=== PATIENT | male | born 1975 | race African-American/Black ===

== ENCOUNTER 2020-05-06 11:29 | Emergency (ER) | payer SELFPAY ==
[2020-05-06 12:57] LABS: BASOPHILS % (AUTO) 0.4 % (0.0-5.0); EOSINOPHILS % (AUTO) 0.7 % (0.0-8.0); HEMATOCRIT 45.3 % (42-54); LYMPHOCYTES % (AUTO) 22.6 % (21.0-51.0); MEAN CORPUSCULAR HGB CONC 33.6 g/dL (32.0-36.0); MEAN CORPUSCULAR VOLUME 92.3 fL (79-99); MONOCYTES % (AUTO) 10.6 % (3.0-13.0); NEUTROPHILS % (AUTO) 65.5 % (40.0-77.0); PLATELET COUNT (AUTO) 177 K/uL (130-400); RED BLOOD CELL COUNT(AUTO) 4.91 MIL/uL (4.50-6.20); RED CELL DISTRIBUTION WIDTH 13.8 % (11.0-15.5); WHITE BLOOD COUNT (AUTO) 8.2 K/uL (4.8-10.8)
[2020-05-06 13:08] LABS: CREATININE 1.6 mg/dL (0.5-1.5); POTASSIUM 4.3 mmol/L (3.5-5.1)
[2020-05-06 13:22] LABS: ALBUMIN 3.6 g/dL (3.5-5.0); BILIRUBIN,TOTAL 1.3 mg/dL (0.2-1.0); TOTAL PROTEIN, SERUM 7.4 g/dL (6.0-8.3)
== END 2020-05-06 14:46 | disposition home or self-care (01) ==
LOC: EDH 11:29
DX: M62.82 Rhabdomyolysis (principal); M79.10 Myalgia, unspecified site; Z72.0 Tobacco use
CPT/HCPCS: 36415; 80053; 82550; 84484; 85025; 93005; 96360

== ENCOUNTER 2021-02-08 08:05 | Emergency (ER) | payer OTHER ==
[~2021-02-08] VITALS: Ht 180.3 cm; Wt 95.3 kg
[2021-02-08 08:14] VITALS: BP 155/87
[2021-02-08 10:23] VITALS: BP 132/93
[2021-02-08 11:52] LABS: APPEARANCE,URINE Clear (CLEAR); BILIRUBIN,URINE Negative (NEGATIVE); COLOR,URINE Yellow (YELLOW); GLUCOSE, URINE (UA) Negative (NEGATIVE); KETONES,URINE Negative (NEGATIVE); LEUKOCYTE ESTERASE ,URINE Negative (NEGATIVE); NITRATE,URINE Negative (NEGATIVE); OCCULT BLOOD,URINE Negative (NEGATIVE); PROTEIN,URINE Negative (NEGATIVE)
[2021-02-08 11:57] LABS: AMPHET/METH SCREEN,URINE NEGATIVE (NEGATIVE); BARBITURATE SCREEN, URINE NEGATIVE (NEGATIVE); BENZODIAZEPINES SCREEN,URINE NEGATIVE (NEGATIVE); CANNABINOID SCREEN,URINE NEGATIVE (NEGATIVE); COCAINE SCREEN,URINE POSITIVE (NEGATIVE); OPIATE SCREEN,URINE NEGATIVE (NEGATIVE); PHENCYCLIDINE SCREEN,URINE NEGATIVE (NEGATIVE)
[2021-02-08 15:47] VITALS: BP 142/79
== END 2021-02-08 15:56 | disposition home or self-care (01) ==
LOC: EDH 08:05
DX: R53.83 Other fatigue (principal); F19.10 Other psychoactive substance abuse, uncomplicated; M54.9 Dorsalgia, unspecified; Z60.9 Problem related to social environment, unspecified
CPT/HCPCS: 72100; 80305; 81003; 82948

== ENCOUNTER 2021-02-09 04:48 | Emergency (ER) | payer OTHER ==
[~2021-02-09] VITALS: Ht 177.8 cm; Wt 90.7 kg
[2021-02-09 04:57] VITALS: BP 154/95
== END 2021-02-09 05:48 | disposition home or self-care (01) ==
LOC: EDH 04:48
DX: G40.909 Epilepsy, unspecified, not intractable, without status epilepticus (principal)

== ENCOUNTER 2021-02-09 13:51 | Emergency (ER) | payer OTHER ==
[~2021-02-09] VITALS: Ht 180.3 cm; Wt 90.7 kg
[2021-02-09 14:04] VITALS: BP 146/93
[2021-02-09 14:42] LABS: BASOPHILS % (AUTO) 0.4 % (0.0-5.0); EOSINOPHILS % (AUTO) 1.5 % (0.0-8.0); HEMATOCRIT 41.4 % (42-54); LYMPHOCYTES % (AUTO) 38.7 % (21.0-51.0); MEAN CORPUSCULAR HEMOGLOBIN 30.7 pg (27.0-33.0); MEAN CORPUSCULAR HGB CONC 32.1 g/dL (32.0-36.0); MEAN CORPUSCULAR VOLUME 95.6 fL (79-99); MONOCYTES % (AUTO) 11.4 % (3.0-13.0); NEUTROPHILS % (AUTO) 47.6 % (40.0-77.0); PLATELET COUNT (AUTO) 236 K/uL (130-400); RED BLOOD CELL COUNT(AUTO) 4.33 MIL/uL (4.50-6.20); RED CELL DISTRIBUTION WIDTH 14.4 % (11.0-15.5); WHITE BLOOD COUNT (AUTO) 5.4 K/uL (4.8-10.8)
[2021-02-09 14:56] LABS: CREATININE 1.1 mg/dL (0.5-1.5); POTASSIUM 4.4 mmol/L (3.5-5.1)
[2021-02-09 15:00] LABS: ALBUMIN 3.3 g/dL (3.5-5.0); BILIRUBIN,TOTAL 0.3 mg/dL (0.2-1.0); TOTAL PROTEIN, SERUM 7.3 g/dL (6.0-8.3)
[2021-02-09 16:58] VITALS: BP 143/95
== END 2021-02-09 16:59 | disposition home or self-care (01) ==
LOC: EDH 13:51
DX: G40.909 Epilepsy, unspecified, not intractable, without status epilepticus (principal); E11.9 Type 2 diabetes mellitus without complications; D64.9 Anemia, unspecified; F32.9 Major depressive disorder, single episode, unspecified; F41.9 Anxiety disorder, unspecified; Z72.0 Tobacco use
CPT/HCPCS: 36415; 70450; 71045; 80053; 85025; 93005

== ENCOUNTER 2021-02-13 05:13 | Emergency (ER) | payer OTHER ==
[~2021-02-13] VITALS: Ht 175.3 cm; Wt 85.7 kg
[2021-02-13] MEDS ORDERED: NAPR-1180 PO (11:54)
[2021-02-13] MEDS ORDERED: ACETAMINOPHEN 500 MG TABLET PO ONE (12:00)
[2021-02-13 12:17] VITALS: BP 117/80
[2021-02-14] MEDS ORDERED: ACET-2247 PO (12:49)
== END 2021-02-13 12:12 | disposition home or self-care (01) ==
LOC: EDH 05:13
DX: M21.41 Flat foot [pes planus] (acquired), right foot (principal); M21.42 Flat foot [pes planus] (acquired), left foot; F17.200 Nicotine dependence, unspecified, uncomplicated; Z59.0 Homelessness; Z79.1 Long term (current) use of non-steroidal anti-inflammatories (NSAID)
CPT/HCPCS: 99282

== ENCOUNTER 2021-02-14 04:56 | Emergency (ER) | payer OTHER ==
[~2021-02-14 04:56] MED LIST: NAPR-1180 PO
[2021-02-14] MEDS ORDERED: ACET-2247 PO (12:49)
== END 2021-02-14 07:28 | disposition home or self-care (01) ==
LOC: EDH 04:56
DX: M21.42 Flat foot [pes planus] (acquired), left foot (principal); F17.200 Nicotine dependence, unspecified, uncomplicated; Z79.1 Long term (current) use of non-steroidal anti-inflammatories (NSAID)
CPT/HCPCS: 73630

== ENCOUNTER 2021-02-14 12:36 | Emergency (ER) | payer OTHER ==
[~2021-02-14] VITALS: Ht 180.3 cm; Wt 90.7 kg
[2021-02-14 12:37] VITALS: BP 156/98
[2021-02-14] MEDS ORDERED: ACET-2247 PO (12:49)
[2021-02-14] MEDS ORDERED: ACETAMINOPHEN 500 MG TABLET ONE (12:50)
[2021-02-14] MEDS ORDERED: ACETAMINOPHEN 500 MG TABLET PO ONE (13:00)
[2021-02-14 13:43] VITALS: BP 145/95
== END 2021-02-14 13:40 | disposition home or self-care (01) ==
LOC: EDH 12:36
DX: M21.41 Flat foot [pes planus] (acquired), right foot (principal); M21.42 Flat foot [pes planus] (acquired), left foot; E11.9 Type 2 diabetes mellitus without complications; F17.200 Nicotine dependence, unspecified, uncomplicated; Z79.1 Long term (current) use of non-steroidal anti-inflammatories (NSAID)
CPT/HCPCS: 99282

== ENCOUNTER 2021-02-16 02:40 | Emergency (ER) | payer OTHER ==
[~2021-02-16] VITALS: Ht 175.3 cm; Wt 78.5 kg
[~2021-02-16 02:40] MED LIST changes: +ACET-2247 PO
[2021-02-16] MEDS ORDERED: IBUPROFEN 600 MG TABLET PO SCH (07:00)
[2021-02-16] MEDS ORDERED: ACETAMINOPHEN 500 MG TABLET PO SCH (07:13)
== END 2021-02-16 07:55 | disposition home or self-care (01) ==
LOC: EDH 02:40
DX: M79.672 Pain in left foot (principal); M79.671 Pain in right foot; R50.9 Fever, unspecified; Z60.9 Problem related to social environment, unspecified; Z79.899 Other long term (current) drug therapy
CPT/HCPCS: 99281

== ENCOUNTER 2021-03-10 02:23 | Emergency (ER) | payer OTHER ==
[~2021-03-10] VITALS: Ht 182.9 cm; Wt 72.6 kg
[2021-03-10 02:30] VITALS: BP 140/84
[2021-03-10 02:36] VITALS: BP 140/84
== END 2021-03-10 03:33 | disposition home or self-care (01) ==
LOC: EDH 02:23
DX: G89.29 Other chronic pain (principal); M79.671 Pain in right foot; M79.672 Pain in left foot; F17.200 Nicotine dependence, unspecified, uncomplicated; Z79.1 Long term (current) use of non-steroidal anti-inflammatories (NSAID); Z79.899 Other long term (current) drug therapy
CPT/HCPCS: 99281

== ENCOUNTER 2021-03-13 06:06 | Emergency (ER) | payer OTHER ==
[~2021-03-13] VITALS: Ht 177.8 cm; Wt 95.3 kg
[2021-03-13 09:42] VITALS: BP 121/68
[2021-03-13 09:49] VITALS: BP 146/87
== END 2021-03-13 09:58 | disposition home or self-care (01) ==
LOC: EDH 06:06
DX: M79.671 Pain in right foot (principal); M79.672 Pain in left foot; G89.29 Other chronic pain; F19.10 Other psychoactive substance abuse, uncomplicated; Z60.9 Problem related to social environment, unspecified; F17.200 Nicotine dependence, unspecified, uncomplicated; Z59.0 Homelessness; Z79.1 Long term (current) use of non-steroidal anti-inflammatories (NSAID)

== ENCOUNTER 2021-03-16 05:33 | Emergency (ER) | payer OTHER ==
[~2021-03-16] VITALS: Ht 177.8 cm; Wt 94.8 kg
[2021-03-16 06:08] VITALS: BP 123/70
== END 2021-03-16 06:10 | disposition home or self-care (01) ==
LOC: EDH 05:33
DX: G89.29 Other chronic pain (principal); M79.672 Pain in left foot; M79.671 Pain in right foot; F17.200 Nicotine dependence, unspecified, uncomplicated; Z79.1 Long term (current) use of non-steroidal anti-inflammatories (NSAID); Z59.0 Homelessness

== ENCOUNTER 2021-06-20 03:35 | Emergency (ER) | payer OTHER ==
[2021-06-20] MEDS ORDERED: BENZONATATE 100 MG CAPSULE PO ONE (04:30)
[2021-06-20] MEDS ORDERED: AMOXICILLIN 500 MG CAPSULE PO ONE (04:30)
[2021-06-20] MEDS ORDERED: BENZONATATE 100 MG CAPSULE PO SCH (04:30)
[2021-06-20] MEDS ORDERED: ACETAMINOPHEN 325 MG TAB PO ONE (04:30)
[2021-06-20] MEDS ORDERED: PENICILLIN G BENZATHINE LA 1.2 MILUNITS/2 ML SYG IM ONE (05:00)
[2021-06-20 05:40] VITALS: BP 115/68
== END 2021-06-20 06:41 | disposition home or self-care (01) ==
LOC: EDH 03:35
DX: J02.0 Streptococcal pharyngitis (principal); Z20.822 Contact with and (suspected) exposure to COVID-19; Z59.02 Unsheltered homelessness; I10 Essential (primary) hypertension; E11.9 Type 2 diabetes mellitus without complications; F17.200 Nicotine dependence, unspecified, uncomplicated; Z79.1 Long term (current) use of non-steroidal anti-inflammatories (NSAID)
CPT/HCPCS: 71045; 87635; 87804 ×2; 87880; 96372; 99284; C9803; J0561

== ENCOUNTER 2021-06-29 11:16 | Emergency (ER) | payer OTHER ==
[~2021-06-29] VITALS: Ht 180.3 cm; Wt 90.7 kg
[2021-06-29] MEDS ORDERED: IBUPROFEN 600 MG TABLET ONE (12:13)
[2021-06-29] MEDS ORDERED: ACET-66 PO (12:23)
[2021-06-29] MEDS ORDERED: IBUPROFEN 600 MG TABLET PO ONE (12:30)
[2021-06-29 13:04] VITALS: BP 116/67
== END 2021-06-29 13:12 | disposition home or self-care (01) ==
LOC: EDH 11:16
DX: G89.29 Other chronic pain (principal); M79.671 Pain in right foot; M79.672 Pain in left foot; Z79.1 Long term (current) use of non-steroidal anti-inflammatories (NSAID); F17.200 Nicotine dependence, unspecified, uncomplicated; Z59.00 Homelessness unspecified
CPT/HCPCS: 93005; 99282

== ENCOUNTER 2021-07-01 16:20 | Emergency (ER) | payer OTHER ==
[~2021-07-01] VITALS: Ht 180.3 cm; Wt 86.2 kg
[~2021-07-01 16:20] MED LIST changes: +ACET-66 PO
[2021-07-01 16:22] VITALS: BP 140/85
== END 2021-07-01 17:54 | disposition left against medical advice (07) ==
LOC: EDH 16:20
DX: M79.672 Pain in left foot (principal); M79.671 Pain in right foot; Z53.21 Procedure and treatment not carried out due to patient leaving prior to being seen by health care provider

== ENCOUNTER 2021-07-11 05:26 | Emergency (ER) | payer OTHER ==
[2021-07-11 05:30] VITALS: BP 149/82
== END 2021-07-11 06:34 | disposition home or self-care (01) ==
LOC: EDH 05:26
DX: M79.671 Pain in right foot (principal); M79.672 Pain in left foot; G89.29 Other chronic pain; F17.200 Nicotine dependence, unspecified, uncomplicated; Z59.02 Unsheltered homelessness; Z79.1 Long term (current) use of non-steroidal anti-inflammatories (NSAID)

== ENCOUNTER 2021-07-18 06:09 | Emergency (ER) | payer OTHER ==
[~2021-07-18] VITALS: Ht 172.7 cm; Wt 75.5 kg
[2021-07-18 06:11] VITALS: BP 143/63
== END 2021-07-18 08:56 | disposition home or self-care (01) ==
LOC: EDH 06:09
DX: L30.9 Dermatitis, unspecified (principal); Z59.02 Unsheltered homelessness; F17.200 Nicotine dependence, unspecified, uncomplicated; Z79.1 Long term (current) use of non-steroidal anti-inflammatories (NSAID)
CPT/HCPCS: 99281

== ENCOUNTER 2021-07-20 03:40 | Emergency (ER) | payer OTHER ==
[~2021-07-20] VITALS: Ht 165.1 cm; Wt 24.9 kg
[2021-07-20 03:44] VITALS: BP 139/76
== END 2021-07-20 05:00 | disposition home or self-care (01) ==
LOC: EDH 03:40
DX: M79.671 Pain in right foot (principal); M79.672 Pain in left foot; F17.200 Nicotine dependence, unspecified, uncomplicated; Z59.02 Unsheltered homelessness; Z79.1 Long term (current) use of non-steroidal anti-inflammatories (NSAID)

== ENCOUNTER 2022-06-05 03:18 | Emergency (ER) | payer OTHER ==
[~2022-06-05] VITALS: Ht 172.7 cm; Wt 87.1 kg
[2022-06-05 06:45] VITALS: BP 131/79
== END 2022-06-05 06:51 | disposition home or self-care (01) ==
LOC: EDH 03:18
DX: M79.671 Pain in right foot (principal); M79.672 Pain in left foot; Z59.02 Unsheltered homelessness; Z60.9 Problem related to social environment, unspecified; Z79.1 Long term (current) use of non-steroidal anti-inflammatories (NSAID)

== ENCOUNTER 2022-06-09 00:48 | Emergency (ER) | payer OTHER ==
[~2022-06-09] VITALS: Ht 180.3 cm; Wt 95.3 kg
[2022-06-09 05:32] VITALS: BP 131/62
[2022-06-18] MEDS ORDERED: GABA300C PO (16:47)
[2022-06-18] MEDS ORDERED: NIAC250T34 PO (16:47)
[2022-06-18] MEDS ORDERED: DULO30CA2 PO (16:47)
== END 2022-06-09 06:21 | disposition home or self-care (01) ==
LOC: EDH 00:48
DX: M79.671 Pain in right foot (principal); M79.672 Pain in left foot; Z59.02 Unsheltered homelessness; F17.200 Nicotine dependence, unspecified, uncomplicated; Z79.1 Long term (current) use of non-steroidal anti-inflammatories (NSAID)

== ENCOUNTER 2022-06-21 05:04 | Emergency (ER) | payer OTHER ==
[~2022-06-21 05:04] MED LIST changes: -ACET-2247 PO; -ACET-66 PO; +DULO30CA2 PO; +GABA300C PO; -NAPR-1180 PO; +NIAC250T34 PO
[2022-06-21 05:17] VITALS: BP 132/92
== END 2022-06-21 05:22 | disposition home or self-care (01) ==
LOC: EDH 05:04
DX: M79.606 Pain in leg, unspecified (principal); M79.89 Other specified soft tissue disorders; M25.569 Pain in unspecified knee; Z76.5 Malingerer [conscious simulation]

== ENCOUNTER 2022-09-21 03:22 | Emergency (ER) | payer OTHER ==
[~2022-09-21] VITALS: Ht 175.3 cm; Wt 78.5 kg
[2022-09-21 07:34] VITALS: BP 128/72
[2022-09-21] MEDS ORDERED: ACET-66 PO (07:35)
== END 2022-09-21 07:59 | disposition home or self-care (01) ==
LOC: EDH 03:22
DX: G89.29 Other chronic pain (principal); M79.672 Pain in left foot; M79.671 Pain in right foot; F17.200 Nicotine dependence, unspecified, uncomplicated; Z79.899 Other long term (current) drug therapy; Z98.890 Other specified postprocedural states

== ENCOUNTER 2022-09-27 06:10 | Emergency (ER) | payer OTHER ==
[~2022-09-27] VITALS: Ht 175 cm; Wt 78.5 kg
[~2022-09-27 06:10] MED LIST changes: +ACET-66 PO
[2022-09-27 06:28] VITALS: BP 142/74
[2022-09-27] MEDS ORDERED: ACETAMINOPHEN 325 MG TAB PO SCH (07:30)
[2022-09-27] MEDS ORDERED: ACETAMINOPHEN 325 MG TAB ONE (07:35)
== END 2022-09-27 07:41 | disposition home or self-care (01) ==
LOC: EDH 06:10
DX: G89.29 Other chronic pain (principal); M79.671 Pain in right foot; M79.672 Pain in left foot; F17.210 Nicotine dependence, cigarettes, uncomplicated; Z59.02 Unsheltered homelessness; Z79.899 Other long term (current) drug therapy

== ENCOUNTER 2023-12-27 04:17 | Emergency (ER) | payer OTHER ==
[2023-12-27] MEDS ORDERED: ACETAMINOPHEN 500 MG TABLET PO ONE (06:00)
[2023-12-27] MEDS ORDERED: KETOROLAC 15MG/ML VIAL (15MG/ML) IM ONE (07:00)
[2023-12-27 07:22] VITALS: BP 126/74; PULSE 76; RESP 18; O2SAT 98
== END 2023-12-27 07:25 | disposition home or self-care (01) ==
LOC: EDH 04:17
DX: S99.922A Unspecified injury of left foot, initial encounter (principal); F14.10 Cocaine abuse, uncomplicated; F17.200 Nicotine dependence, unspecified, uncomplicated; Z76.5 Malingerer [conscious simulation]; Z59.02 Unsheltered homelessness; X58.XXXA Exposure to other specified factors, initial encounter; Y93.89 Activity, other specified; Y92.89 Other specified places as the place of occurrence of the external cause; Y99.8 Other external cause status
CPT/HCPCS: 73630

== ENCOUNTER 2023-12-28 00:30 | Emergency (ER) | payer OTHER ==
[~2023-12-28] VITALS: Ht 182.9 cm; Wt 90.7 kg
[2023-12-28 04:03] VITALS: BP 132/70; PULSE 86; RESP 16; O2SAT 98
== END 2023-12-28 04:04 | disposition home or self-care (01) ==
LOC: EDH 00:30
DX: G89.29 Other chronic pain (principal); M79.661 Pain in right lower leg; M79.662 Pain in left lower leg; F17.200 Nicotine dependence, unspecified, uncomplicated; Z98.890 Other specified postprocedural states; Z79.899 Other long term (current) drug therapy

== ENCOUNTER 2023-12-30 02:00 | Emergency (ER) | payer OTHER ==
[~2023-12-30] VITALS: Ht 172.7 cm; Wt 96.2 kg
[2023-12-30 02:05] VITALS: BP 143/72; PULSE 81; RESP 20
== END 2023-12-30 02:56 | disposition home or self-care (01) ==
LOC: EDH 02:00
DX: G89.29 Other chronic pain (principal); M79.604 Pain in right leg; M79.605 Pain in left leg; F17.200 Nicotine dependence, unspecified, uncomplicated
CPT/HCPCS: 99281

== ENCOUNTER 2024-01-01 13:59 | Emergency (ER) | payer OTHER ==
[~2024-01-01] VITALS: Ht 180.3 cm; Wt 95.3 kg
[2024-01-01 15:34] VITALS: BP 138/77; PULSE 78; RESP 16; O2SAT 98
[2024-01-02] MEDS ORDERED: IBUP-2077 PO (13:39)
== END 2024-01-01 15:40 | disposition home or self-care (01) ==
LOC: EDH 13:59
DX: G89.29 Other chronic pain (principal); M79.671 Pain in right foot; E11.9 Type 2 diabetes mellitus without complications; F20.9 Schizophrenia, unspecified; F17.200 Nicotine dependence, unspecified, uncomplicated
CPT/HCPCS: 99282

== ENCOUNTER 2024-01-02 13:34 | Emergency (ER) | payer OTHER ==
[~2024-01-02] VITALS: Ht 182.9 cm; Wt 95.3 kg
[2024-01-02] MEDS ORDERED: IBUP-2077 PO (13:39)
[2024-01-02 15:07] VITALS: BP 144/80; PULSE 95; RESP 18; O2SAT 96
[2024-01-02] MEDS: IBUPROFEN 800 MG TAB PO ONE (15:22)
== END 2024-01-02 15:23 | disposition home or self-care (01) ==
LOC: EDH 13:34
DX: G89.29 Other chronic pain (principal); M79.671 Pain in right foot; E11.9 Type 2 diabetes mellitus without complications; F20.9 Schizophrenia, unspecified; F17.200 Nicotine dependence, unspecified, uncomplicated; Z79.899 Other long term (current) drug therapy; Z98.890 Other specified postprocedural states
CPT/HCPCS: 99282

== ENCOUNTER 2024-01-03 15:48 | Emergency (ER) | payer OTHER ==
[~2024-01-03] VITALS: Ht 182.9 cm; Wt 95.3 kg
[~2024-01-03 15:48] MED LIST changes: +IBUP-2077 PO
== END 2024-01-03 17:41 | disposition home or self-care (01) ==
LOC: EDH 15:48
DX: G89.29 Other chronic pain (principal); M79.604 Pain in right leg; M79.605 Pain in left leg; E11.9 Type 2 diabetes mellitus without complications; Z79.899 Other long term (current) drug therapy

== ENCOUNTER 2024-01-06 12:30 | Emergency (ER) | payer OTHER ==
[~2024-01-06] VITALS: Ht 180.3 cm; Wt 95.3 kg
[2024-01-06 13:32] VITALS: BP 148/88; PULSE 83; RESP 16; O2SAT 99
[2024-01-06] MEDS: ACETAMINOPHEN 500 MG TABLET PO ONE (14:11)
== END 2024-01-06 14:31 | disposition home or self-care (01) ==
LOC: EDH 12:30
DX: G89.29 Other chronic pain (principal); M79.672 Pain in left foot; M79.671 Pain in right foot; E11.9 Type 2 diabetes mellitus without complications; F17.200 Nicotine dependence, unspecified, uncomplicated; Z79.899 Other long term (current) drug therapy; Z98.890 Other specified postprocedural states

== ENCOUNTER 2024-01-07 03:53 | Emergency (ER) | payer OTHER ==
[2024-01-07 08:42] VITALS: BP 126/70; PULSE 72; RESP 16; O2SAT 99
== END 2024-01-07 08:44 | disposition home or self-care (01) ==
LOC: EDH 03:53
DX: M79.671 Pain in right foot (principal); M79.672 Pain in left foot; E11.9 Type 2 diabetes mellitus without complications; F17.200 Nicotine dependence, unspecified, uncomplicated; Z79.899 Other long term (current) drug therapy; Z98.890 Other specified postprocedural states
CPT/HCPCS: 99281

== ENCOUNTER 2024-01-08 07:20 | Emergency (ER) | payer OTHER ==
[~2024-01-08] VITALS: Ht 182.9 cm; Wt 99.8 kg
[2024-01-08 09:33] VITALS: BP 132/74; PULSE 74; RESP 18; O2SAT 98
== END 2024-01-08 09:36 | disposition home or self-care (01) ==
LOC: EDH 07:20
DX: G89.29 Other chronic pain (principal); M79.672 Pain in left foot; M79.671 Pain in right foot; E11.9 Type 2 diabetes mellitus without complications; F17.200 Nicotine dependence, unspecified, uncomplicated; Z79.899 Other long term (current) drug therapy; Z98.890 Other specified postprocedural states
CPT/HCPCS: 99281

== ENCOUNTER 2024-01-09 10:37 | Emergency (ER) | payer OTHER ==
[~2024-01-09] VITALS: Ht 180.3 cm; Wt 95.3 kg
[2024-01-09 10:40] VITALS: BP 127/84; PULSE 98; RESP 18
[2024-01-09 10:46] VITALS: O2SAT 97
== END 2024-01-09 11:28 | disposition home or self-care (01) ==
LOC: EDH 10:37
DX: G89.29 Other chronic pain (principal); M79.672 Pain in left foot; M79.671 Pain in right foot; E11.40 Type 2 diabetes mellitus with diabetic neuropathy, unspecified; F17.200 Nicotine dependence, unspecified, uncomplicated
CPT/HCPCS: 99281

== ENCOUNTER 2024-01-17 02:17 | Emergency (ER) | payer OTHER ==
[~2024-01-17] VITALS: Ht 180.3 cm; Wt 95.3 kg
[~2024-01-17 02:17] MED LIST changes: +MECL-302 PO
[2024-01-17] MEDS ORDERED: ACET-66 PO (02:25)
[2024-01-17] MEDS: ACETAMINOPHEN 500 MG TABLET PO STA (02:28)
[2024-01-17 03:10] VITALS: BP 143/82; PULSE 85; RESP 16; O2SAT 98
== END 2024-01-17 03:11 | disposition home or self-care (01) ==
LOC: EDH 02:17
DX: G89.29 Other chronic pain (principal); M79.672 Pain in left foot; M79.671 Pain in right foot; E11.9 Type 2 diabetes mellitus without complications; E78.00 Pure hypercholesterolemia, unspecified; F17.200 Nicotine dependence, unspecified, uncomplicated; I10 Essential (primary) hypertension; Z98.890 Other specified postprocedural states

== ENCOUNTER 2024-03-04 23:51 | Emergency (ER) | payer OTHER ==
[2024-03-05 02:49] VITALS: BP 112/80; PULSE 88; RESP 20; O2SAT 100
== END 2024-03-05 02:54 | disposition home or self-care (01) ==
LOC: EDH 23:51
DX: G89.29 Other chronic pain (principal); M79.672 Pain in left foot; M79.671 Pain in right foot; E11.9 Type 2 diabetes mellitus without complications; E78.00 Pure hypercholesterolemia, unspecified; I10 Essential (primary) hypertension; Z79.899 Other long term (current) drug therapy; Z79.1 Long term (current) use of non-steroidal anti-inflammatories (NSAID)

== ENCOUNTER 2024-03-06 08:55 | Emergency (ER) | payer OTHER ==
[~2024-03-06] VITALS: Ht 172.7 cm; Wt 79.4 kg
[2024-03-06 10:43] VITALS: BP 163/47; PULSE 18; RESP 18; O2SAT 99
[2024-03-06] MEDS: acetaMINOPHEN 500 MG TABLET PO ONE ×2 (10:48)
== END 2024-03-06 11:22 | disposition home or self-care (01) ==
LOC: EDH 08:55
DX: G89.29 Other chronic pain (principal); E11.40 Type 2 diabetes mellitus with diabetic neuropathy, unspecified; M79.671 Pain in right foot; M79.672 Pain in left foot; E78.00 Pure hypercholesterolemia, unspecified; I10 Essential (primary) hypertension; Z98.890 Other specified postprocedural states; F17.200 Nicotine dependence, unspecified, uncomplicated; Z79.899 Other long term (current) drug therapy; Z79.2 Long term (current) use of antibiotics